=== PATIENT | female | born 1975 | race African-American/Black ===

== ENCOUNTER → 2016-11-15 | Outpatient (CLI) | payer OTHER ==
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
== END | disposition home or self-care (01) ==
LOC: RADCTMAIN 15:39
PROVIDERS: ATTEND Nurse Practitioner Family
DX: S09.93XS Unspecified injury of face, sequela (principal)
CPT/HCPCS: 70450

== ENCOUNTER 2016-12-08 22:37 | Emergency (ER) | payer OTHER ==
[2016-12-08 22:51] VITALS: RESP 16; TEMP 98
[2016-12-08] MEDS ORDERED: SODIUM CHLORIDE 0.9% 2,000 ML IV STA (23:21)
[2016-12-08 23:59] LABS: Basophils % (A) 1 %; CH 27.7; CHCM 32.4; Eosinophils % (A) 1 %; HCT 40.3 % (34.0-46.0); HDW 2.43; HGB 13.3 gm/dL (11.4-16.0); Luc % (Auto) 2; Lymphocytes # (A) 1.6 k/uL (1.0-4.8); Lymphocytes % (A) 36 %; MCH 28.4 pg (25.0-35.0); Mean Platelet Volume 7.4; Monocytes # (A) 0.2 k/uL (0-1.0); Monocytes % (A) 5 %; Neutrophils # (A) 2.4 k/uL (1.3-7.7); Neutrophils % (A) 55 %; RBC 4.68 m/uL (3.80-5.40); RDW 14.5 % (11.5-15.5); WBC 4.4 k/uL (3.8-10.6); WBC (Perox) 4.46
--- NOTE | 2016-12-09 00:08 | XR ---
EXAM: XR Chest, 2 Views. CLINICAL HISTORY: Reason: abdominal pain TECHNIQUE: Frontal and lateral views of the chest. COMPARISON: No relevant prior studies available. FINDINGS: Lungs: Unremarkable. No consolidation. Pleural space: Unremarkable. No pneumothorax. Heart: Unremarkable. No cardiomegaly. Mediastinum: Unremarkable. Bones/joints: Unremarkable. IMPRESSION: Normal chest x-rays.
[2016-12-09 00:10] LABS: ALT 28 U/L (9-52); AST 29 U/L (14-36); Alkaline Phosphatase 68 U/L (38-126); Amylase 103 U/L (30-110); Anion Gap 12 mmol/L; Blood Urea Nitrogen 7 mg/dL (7-17); Calcium 9.6 mg/dL (8.4-10.2); Carbon Dioxide 26 mmol/L (22-30); Chloride 105 mmol/L (98-107); Glucose 68 mg/dL (74-99); Non-African American GFR(MDRD) >60 (>60 ml/min/1.73 sqM); Potassium 3.7 mmol/L (3.5-5.1); Sodium 143 mmol/L (137-145); Total Bilirubin 0.5 mg/dL (0.2-1.3); Total Protein 8.2 g/dL (6.3-8.2)
--- NOTE | 2016-12-09 00:11 | XR ---
EXAM: XR Abdomen Complete, 2 or More Views. CLINICAL HISTORY: Reason: abdominal pain TECHNIQUE: Frontal view of the abdomen/pelvis with upright view of the abdomen. COMPARISON: No relevant prior studies available. FINDINGS: Intraperitoneal space: No free air. Gastrointestinal tract: Gas-filled small and large bowel loops, nonspecific. No focal bowel dilatation on plain film. Bones/joints: Unremarkable. Other findings: Mild retained stool. Faint calcification in the left pelvis likely represent phlebolith. IMPRESSION: No evidence for free air. Nonspecific bowel gas pattern with mild retained stool.
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
[2016-12-09 01:23] LABS: Appearance,Urine Cloudy (Clear); Bacteria,Urine Rare /hpf; Bilirubin,Urine Negative (Negative); Glucose,Urine (UA) Negative (Negative); Ketones,Urine Negative (Negative); Leukocyte Esterase,Urine Negative (Negative); Mucus,Urine Rare /hpf; Nitrite,Urine Negative (Negative); PH, Urine 5.5 (5.0-8.0); Particle Count 4659; Protein,Urine Negative (Negative); RBC,Urine 1 /hpf (0-5); Specific Gravity,Urine 1.017 (1.001-1.035); Squamous Epithelial Cell,Urine 17 /hpf (0-4); UA Billing (MACRO vs. MICRO) MICRO; Urobilinogen,Urine <2.0 mg/dL (<2.0); WBC,Urine 3 /hpf (0-5)
[2016-12-09] MEDS ORDERED: IBUPROFEN 600 MG STARTER PACK 4 TAB BTL PO STA (01:24)
[2016-12-09 03:08] VITALS: BP 152/78; PULSE 81
== END 2016-12-09 03:12 | disposition home or self-care (01) ==
LOC: EC 22:37
DX: R10.2 Pelvic and perineal pain (principal); R05 Cough; J02.9 Acute pharyngitis, unspecified; F17.200 Nicotine dependence, unspecified, uncomplicated; Z59.0 Homelessness
CPT/HCPCS: 36415; 71020; 74000; 80053; 81001; 82150; 83690; 85025; 87081; 87430; 87502; 96360; 96361; 99284

== ENCOUNTER 2016-12-09 22:10 | Emergency (ER) | payer OTHER ==
[2016-12-10] MEDS ORDERED: ACETAMINOPHEN TAB 500 MG TAB PO STA (00:13)
[2016-12-10] MEDS ORDERED: AZITHROMYCIN 500 MG TAB PO STA (01:09)
[2016-12-10] MEDS ORDERED: guaiFENesin-DM 600/30MG 1 EACH TAB.ER.12H PO STA (01:09)
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
[2016-12-10 01:32] VITALS: BP 168/87; PULSE 85; RESP 18; TEMP 99.2
== END 2016-12-10 01:32 | disposition home or self-care (01) ==
LOC: EC 22:10
DX: R05 Cough (principal); R50.9 Fever, unspecified; Z59.0 Homelessness; F17.200 Nicotine dependence, unspecified, uncomplicated; R52 Pain, unspecified
CPT/HCPCS: 99282; 99283